=== PATIENT | female | born 1995 | race Caucasian/White ===

== ENCOUNTER 2023-11-02 22:07 | Inpatient (IN) | payer OTHER ==
[~2023-11-02] VITALS: Ht 177.8 cm; Wt 94.3 kg
--- NOTE | ~2023-11-02 | OR ---
[facility] [address], [place] [address] Draft DATE OF OPERATION: 11/03/2023 SURGEON: Kourtney Oh MD MEDICAL DOCTOR: Dr. Joaquin Jenkins PREOPERATIVE DIAGNOSES: Term , previous section, premature rupture of membranes. POSTOPERATIVE DIAGNOSES: Term , previous section, premature rupture of membranes, delivered. PROCEDURE: Repeat section with low segment transverse uterine incision. ANESTHESIA: Spinal. ESTIMATED BLOOD LOSS: 700 mL. DRAINS: Andrews catheter. INDICATIONS AND FINDINGS: The patient is a 28-year-old female 5, para 1-2-1-3, who was admitted late on the evening on 11/01 with premature rupture of membranes at 37 weeks. She was a previous section. status was very reassuring. She was taken to the operating room where she was delivered of a little boy from the ROP position via lower segment transverse uterine incision with Apgars of 8 and 9 and a weight of 7 pounds 6 ounces. Uterus, tubes, ovaries, and placenta appeared normal. DESCRIPTION OF PROCEDURE: The patient was prepped and draped in the supine position. A repeat Pfannenstiel skin incision was made and carried down through the fascia. The incision was extended laterally. The inferior and superior fascial flaps were then created. The muscles were bluntly divided and the peritoneum was entered bluntly and the incision extended bluntly. The Jaguar retractor was then placed. There was some adhesion of the bladder flap over the anterior uterine wall and this was incised allowing this to drop down. PATIENT NAME: RUTHY JIMÉNEZ OPERATIVE REPORT DATE OF : [birth year] REPORT #: [id number] PHYSICIAN: KOURTNEY OH MD PCP: NO PRIMARY CARE PHYSICIAN REPORT IS CONFIDENTIAL AND NOT TO BE RELEASED WITHOUT AUTHORIZATION [facility] [address], [place] [address] Draft The uterine incision was made at the upper aspect of the peritoneal reflection. The incision was extended bluntly. The baby was delivered with the above findings and handed off to the pediatric staff in attendance. The placenta was expressed and the uterus explored with a lap tape assuring no remaining fragments. The edges of the incision were identified and the uterus closed in 2 layers using 0 Monocryl. The first layer was a running locking stitch and the second was a vertical imbricating stitch. An additional [id number] was required near the right side of the incision for ongoing bleeding. There was a small hematoma at the left upper aspect of the incision which did not enlarge during the time of observation. Bleeding points on the peritoneum were controlled with cautery. The abdomen was irrigated, inspected and appeared hemostatic. Jaguar retractor was then removed and the peritoneum identified and closed with a running suture of 3-0 Vicryl. The muscles were brought together with interrupted sutures of 0 Vicryl. Bleeding points were controlled with cautery. Irrigation was done and there was no evidence of any ongoing bleeding. The fascia was then closed from each angle to the midline with a running suture of 0 Vicryl. The subcu space was irrigated and bleeding points were controlled with cautery. The deep space was closed with a running suture of 3-0 Vicryl. The skin was closed with corby. All sponge and needle counts were correct and she tolerated the procedure well and was taken to the recovery room in good condition. MD NICHOLE Grigsby/FAREEDL /[id number] Copies: ~ PATIENT NAME: RUTHY JIMÉNEZ OPERATIVE REPORT DATE OF : [birth year] REPORT #: [id number] PHYSICIAN: KOURTNEY OH MD PCP: NO PRIMARY CARE PHYSICIAN REPORT IS CONFIDENTIAL AND NOT TO BE RELEASED WITHOUT AUTHORIZATION
[~2023-11-02 22:07] MED LIST: BENADRYL25 MG PO
[2023-11-02] MEDS ORDERED: LACTATED RINGER'S 1,000 ML IV ONE (22:30)
[2023-11-02 23:02] LABS: AMNISURE ROM TEST POSITIVE
[2023-11-02] MEDS ORDERED: AZITHROMYCIN/DEXTROSE 500 MG/250 ML BAG IV SCH (23:41)
[2023-11-02] MEDS ORDERED: CEFAZOLIN SODIUM 2 GM/20 ML SYR IV SCH (23:41)
[2023-11-02] MEDS ORDERED: LACTATED RINGER'S 1,000 ML IV PRN (23:45)
[2023-11-02] MEDS ORDERED: SOD+POT BICARB/CITRIC ACID 2 EA TABLET.EFF PO ONE (23:45)
[2023-11-02 23:47] LABS: HEMATOCRIT 33.4 % (35.0-50.0); HEMOGLOBIN 11.5 g/dL (12.0-18.0); MCH 32.5 (27-36); MCHC 34.5 g/dl (30-36); RBC 3.55 M/ul (4.3-5.7); RDW 13.7 (10.5-15.0)
[2023-11-02 23:49] VITALS: BP 114/63
[2023-11-02] MEDS ORDERED: fentaNYL citrate 100 MCG/2 ML VIAL ONE (23:55)
[2023-11-02] MEDS ORDERED: BUPIVACAINE 0.75% IN DEXTROSE 2 ML AMP ONE (23:55)
[2023-11-02] MEDS ORDERED: LIDOCAINE HCL 2% 5 ML SDV ONE (23:55)
[2023-11-02] MEDS ORDERED: MORPHINE SULFATE 1 MG/ML VIAL ONE (23:55)
[2023-11-02] MEDS ORDERED: DEXAMETHASONE SOD PHOS 4 MG/ML VIAL ONE (23:56)
[2023-11-02] MEDS ORDERED: ondansetron HCL 4 MG/2 ML VIAL ONE (23:56)
[2023-11-03 00:02] LABS: AMPHETAMINES, URINE NEGATIVE (NEGATIVE); BARBITURATES, URINE NEGATIVE (NEGATIVE); BENZODIAZEPINE, URINE NEGATIVE (NEGATIVE); BUPRENORPHINE, URINE NEGATIVE (NEGATIVE); CANNABINOID, URINE NEGATIVE (NEGATIVE); COCAINE, URINE NEGATIVE (NEGATIVE); ECSTASY, URINE NEGATIVE (NEGATIVE); FENTANYL, URINE NEGATIVE (NEGATIVE); METHADONE, URINE NEGATIVE (NEGATIVE); OPIATES, URINE NEGATIVE (NEGATIVE); OXYCODONE, URINE NEGATIVE (NEGATIVE); PHENCYCLIDINE, URINE NEGATIVE (NEGATIVE)
[2023-11-03] MEDS ORDERED: PHENYLEPHRINE HCL 10 MG/ML VIAL ONE (00:08)
[2023-11-03] MEDS ORDERED: SODIUM CHLORIDE 0.9% 20 ML IV ONE ×3 (00:08→00:20)
[2023-11-03] MEDS ORDERED: Ropivacaine HCl 0.5% 30 ML VIAL ONE (00:18)
[2023-11-03] MEDS ORDERED: DEXAMETHASONE SOD PHOS 4 MG/ML VIAL ONE (00:18)
[2023-11-03] MEDS ORDERED: dexmedeTOMIDine HCl 200 MCG/2 ML VIAL ONE (00:18)
[2023-11-03 00:19] LABS: ABO O; ANTIBODY SCREEN NEGATIVE; RH POSITIVE
[2023-11-03] MEDS ORDERED: OXYTOCIN 10 UNITS/ML VIAL ONE (00:19)
[2023-11-03] MEDS ORDERED: diphenhydrAMINE HCL 50 MG/ML VIAL IV PRN (00:45)
[2023-11-03] MEDS ORDERED: diphenhydrAMINE HCL 25 MG CAP PO PRN (00:45)
[2023-11-03] MEDS ORDERED: NALOXONE HCL 0.4 MG SYR IV PRN ×2 (00:45)
[2023-11-03] MEDS ORDERED: KETOROLAC TROMETHAMINE 30 MG/ML VIAL IV PRN ×2 (00:45)
[2023-11-03] MEDS ORDERED: ondansetron HCL 4 MG/2 ML VIAL IV PRN ×2 (00:45)
[2023-11-03] MEDS ORDERED: HYDROmorphone HCL 1 MG/ML SYR IV PRN (00:45)
[2023-11-03] MEDS ORDERED: IBLOOD GLUCOSE TEST STRIP 1 EA TEST VI PRN (00:45)
[2023-11-03] MEDS ORDERED: fentaNYL citrate 50 MCG/ML SDV IV PRN (00:45)
[2023-11-03] MEDS ORDERED: LIDOCAINE 2% VISCOUS 6 ML SYR TOP ONE ×2 (01:15)
[2023-11-03] MEDS ORDERED: BENZOCAINE 60 ML AEROSOL TOP PRN (01:15)
[2023-11-03] MEDS ORDERED: HYDROCORTISONE ACETATE 25 MG SUPP PR PRN (01:15)
[2023-11-03] MEDS ORDERED: MAGNESIUM HYDROXIDE 30 ML UDC PO PRN (01:15)
[2023-11-03] MEDS ORDERED: CALCIUM CARBONATE 500 MG CHEW PO PRN (01:15)
[2023-11-03] MEDS ORDERED: OXYTOCIN/0.9 % SODIUM CHLORIDE 500 ML IV SCH (01:15)
[2023-11-03] MEDS ORDERED: WITCH HAZEL/GLYCERIN 1 EA PAD TOP PRN (01:15)
[2023-11-03] MEDS ORDERED: MAGNESIUM HYDROXIDE/AL HYDROX 30 ML CUP PO PRN (01:15)
[2023-11-03] MEDS ORDERED: OXYCODONE HCL 5 MG TAB PO PRN (01:15)
[2023-11-03 01:35] VITALS: BP 107/57
--- NOTE | 2023-11-03 01:55 | NUR ---
11/03/23 0155 Lizbeth Patterson 0114 PATIENT BACK TO ROOM 103. PATIENT AWAKE AND ORIENTED. BREATHING EQUAL AND UNLABORED. OXYGEN SATRUATIONS ABOVE 90% ON ROOM. SR ON TELE. RR 10-20. FUNDAL MASSAGE COMPLETE. SPINAL LEVEL CHECKED. SURGICAL DRESSING CLEAN, DRY AND INTACT. JOSÉ LUIS PAD SMALL AMOUNT OF RED SHADOWING. REED DRAINING. IV PATENT WITH LR AND 40 OF PIT. SCD'S ON. BABY ON CHEST AND AT BEDSIDE. 0125 PATIENT HEAD OF BED ELEVATED. PATIENT AWAKE AND ORIENTED. BREATHING EQUAL AND UNLABORED. OXYGEN SATURATIONS ABOVE 90% ON ROOM AIR. RR 10-20. SR ON TELE. FUNDAL MASSAGES COMPLETE. SPINAL LEVEL CHECKED. BABY ON CHEST. ICE CHIPS GIVEN. AT BEDSIDE. 0140 PATIENT ALERT AND ORIENTED. BREATHING EQUAL AND UNLABORED. OXYGEN SATURATIONS ABOVE 90% ON ROOM AIR. RR 10-20. SR ON TELE. FUNDAL MASSAGE. SPINAL LEVEL CHECKED. BABY ON CHEST. AT BEDSIDE. SURGICAL DRESSING CLEAN, DRY AND INTACT. JOSÉ LUIS PAD SMALL AMOUNT OF RED SHADOWING. FBC NURSE AT BEDSIDE. REPORT GIVEN. NO QUESTIONS FROM PATIENT OR FBC NURSE AT THIS TIME. NO FUTHER NEEDS. BED LOWEST POSITION. CALL LIGHT WITHIN REACH.
[2023-11-03] MEDS ORDERED: LACTATED RINGER'S 1,000 ML IV SCH (05:00)
[2023-11-03] MEDS ORDERED: ACETAMINOPHEN 500 MG TAB PO SCH (08:00)
[2023-11-03] MEDS ORDERED: SENNOSIDES/DOCUSATE 1 EA TAB PO SCH (09:00)
[2023-11-03] MEDS ORDERED: KETOROLAC TROMETHAMINE 30 MG/ML VIAL IV SCH (13:00)
[2023-11-04 05:38] LABS: HEMATOCRIT 30.2 % (35.0-50.0); HEMOGLOBIN 10.5 g/dL (12.0-18.0); MCH 32.7 (27-36); MCHC 34.7 g/dl (30-36); MCV 94.1 fl (81-99); RBC 3.21 M/ul (4.3-5.7); RDW 13.9 (10.5-15.0)
--- NOTE | 2023-11-04 08:16 | PR ---
[facility] [address], [place] [address] Signed PP Progress Notes Datetime Report Generated by CPKarl: 11/04/2023 08:16 SUBJECTIVE: [id number] Pain: Within Normal Limits Nausea/Vomiting: Denies Flatus: Yes Vital Signs: [id number] Vital Signs: Reviewed; Within Normal Limits Cardiovascular: Normal Respiratory: Normal Abdomen/Uterus: Abnormal Lochia: Normal Vulva/Perineum: Not Done Breasts: Not Done CVA Tenderness: Not Done Extremities: Normal Incision: Normal Progress: Normal Exam Comments: Abdomen w/ active BS. Fundus firm, NT @ U-2. H/H 10.5/30.2, WBC 11.4, plat 136k IMPRESSION/PLAN/PROCEDURES: [id number] Impression: Normal Progression Other Impression: thrombocytopenia Plan: Discharge Procedures: None Progress Notes: Doing well. Desires D/C today if possible. I think this is reasonable if peds is agreeable. She will need corby tomorrow. Thrombocytopenia--140k on admit w/ minimal change. Suspect gestational thrombocytopenia as no evidence of preeclampsia. Signing Physician: Kourtney Oh MD Copies: ~ *Electronically Signed* 11/04/23815 KOURTNEY OH MD PATIENT NAME: RUTHY JIMÉNEZ PROGRESS NOTE DATE OF : 95 PHYSICIAN: KOURTNEY OH MD RPT #: [id number] REPORT IS CONFIDENTIAL AND NOT TO BE RELEASED WITHOUT AUTHORIZATION
[2023-11-04] MEDS ORDERED: IBUPROFEN 800 MG TAB PO SCH (12:00)
== END 2023-11-05 11:35 | disposition home or self-care (01) | DRG 786 ==
LOC: FBCO 22:07 → FBC 23:18
PROVIDERS: Obstetrics & Gynecology; ADMIT Obstetrics & Gynecology; ATTEND Obstetrics & Gynecology
PROC: 10D00Z1 Extraction of Products of Conception, Low, Open Approach (ICD-10-PCS; principal; 2023-11-03)
DX: O34.211 Maternal care for low transverse scar from previous cesarean delivery (principal); O60.14X0 Preterm labor third trimester with preterm delivery third trimester, not applicable or unspecified; O99.324 Drug use complicating childbirth; O42.02 Full-term premature rupture of membranes, onset of labor within 24 hours of rupture; Z37.0 Single live birth; Z3A.36 36 weeks gestation of pregnancy; O72.3 Postpartum coagulation defects; D69.6 Thrombocytopenia, unspecified; F12.90 Cannabis use, unspecified, uncomplicated
CPT/HCPCS: 01961; 36415; 76942; 80307; 82803; 84112; 85027; 86850; 86900; 86901; A9270; J0456; J0690; J1100; J1885; J2001; J2274; J2371; J2405; J2590; J2795; J3010

== ENCOUNTER 2024-02-25 14:36 | Emergency (ER) | payer OTHER ==
[~2024-02-25] VITALS: Ht 182.9 cm; Wt 80.5 kg
[2024-02-25 16:53] VITALS: BP 136/88
== END 2024-02-25 16:53 | disposition home or self-care (01) ==
LOC: ED 14:36
DX: S50.12XA Contusion of left forearm, initial encounter (principal); S20.212A Contusion of left front wall of thorax, initial encounter; S80.10XA Contusion of unspecified lower leg, initial encounter; Y04.0XXA Assault by unarmed brawl or fight, initial encounter
CPT/HCPCS: 71046; 99284-25